=== PATIENT | male | born 1955 | race Two or more races ===

== ENCOUNTER 2023-04-21 06:58 | Day surgery (SDC) | payer MEDICARE, OTHER ==
[~2023-04-21] VITALS: Ht 185.4 cm; Wt 115.7 kg
[~2023-04-21 06:58] MED LIST: ALLO300T2 PO; ASPI-543 PO; COLCPOW2 PO; ISOS1TAB28 PO; METO25TA93 PO; OMEP-434 PO
[2023-04-21] MEDS ORDERED: HEPARIN SODIUM (PORCINE) 5000 UNITS/ML 1ML VIAL ONE (07:53)
[2023-04-21] MEDS ORDERED: ANGIOMAX 250 MG VIAL IV ONE (07:53)
[2023-04-21] MEDS ORDERED: VERAPAMIL 2.5MG/ML INJ 2ML VIAL IV ONE (07:53)
[2023-04-21] MEDS ORDERED: LIDOCAINE 2%HCL (LOCAL ANESTH.) INJ 20ML MDV ONE (07:55)
[2023-04-21] MEDS ORDERED: IODIXANOL 320MG/ML 100ML BTL IV ONE (07:55)
[2023-04-21] MEDS ORDERED: SODIUM CHL 0.9% 0 ML ONE (07:55)
[2023-04-21] MEDS ORDERED: MIDAZOLAM HCL 2MG/2ML 2ml VIAL (1mg/ml) ONE (07:55)
[2023-04-21] MEDS ORDERED: fentaNYL CITRATE 100 MCG/2 ML VL ONE (07:56)
[2023-04-21] MEDS ORDERED: diphenhdrAMINE HCL 50 MG/1 ML VL ONE (08:11)
[2023-04-21] MEDS ORDERED: methylPREDNISolone SOD SUCC 125 MG/2 ML VL ONE (08:11)
[2023-04-21 08:35] VITALS: BP 112/73; PULSE 57; RESP 18; O2SAT 94
[2023-04-21 08:50] VITALS: BP 103/71; PULSE 52; RESP 17; O2SAT 93
[2023-04-21 09:05] VITALS: BP 104/69; PULSE 54; RESP 16; O2SAT 92
[2023-04-21 09:20] VITALS: BP 113/70; PULSE 55; RESP 16; O2SAT 92
[2023-04-21 09:50] VITALS: BP 107/67; PULSE 53; RESP 15; O2SAT 91
[2023-04-21 10:20] VITALS: BP 109/77; PULSE 57; RESP 18; O2SAT 93
== END 2023-04-21 10:31 | disposition home or self-care (01) ==
LOC: CATH 06:58
PROVIDERS: ATTEND Internal Medicine
DX: R94.39 Abnormal result of other cardiovascular function study (principal); I25.118 Atherosclerotic heart disease of native coronary artery with other forms of angina pectoris
CPT/HCPCS: 93454; 93567; C1769; C1894; J1200; J1644; J2250; J2930; J3010; Q9967; 99152